=== PATIENT | male | born 1975 | race Caucasian/White ===

== ENCOUNTER 2021-04-09 16:16 | Emergency (ER) | payer BC, SELFPAY ==
[2021-04-09 16:24] VITALS: BP 138/86; PULSE 83; RESP 20; TEMP 37.2; O2SAT 98
--- NOTE | 2021-04-09 16:59 | ED.GENADULT ---
HPI - General Adult General Chief complaint: Unspecified Stated complaint: needs note to return to work Time Seen by Provider: 04/09/21 16:47 Source: patient and RN notes reviewed Mode of arrival: ambulatory Limitations: no limitations History of Present Illness HPI narrative: Patient presents today requesting a note to return to work. He tested positive for COVID-19 on 03/30/2021. He has finished his quarantine today. States his symptoms are all but resolved. He reports a scant cough lingers. He is not currently taking any [id number] medications for his symptoms. MD complaint: Return to work note Related Data Home Medications Medication Instructions Recorded Confirmed No Home Medications 04/09/21 04/09/21 Allergies Allergy/AdvReac Type Severity Reaction Status Date / Time No Known Allergies Allergy Verified 04/09/21 16:35 Review of Systems Review of Systems: CONSTITUTIONAL: Denies body aches, fever, chills, or sweats. EYES: Denies visual changes, redness, or discharge. ENT: Denies rhinorrhea, congestion, sore throat, or otalgia. CARDIOVASCULAR: Denies chest pain, palpitations, or edema. RESPIRATORY: Denies dyspnea.+ Scant cough GASTROINTESTINAL: Denies abdominal pain, nausea, vomiting, or diarrhea. GENITOURINARY: Denies dysuria or hematuria. SKIN: Denies rash, itching, or wounds. MUSCULOSKELETAL: Denies back pain, joint pain, or myalgia. NEUROLOGIC: Denies headache, numbness, tingling, or weakness. PSYCH: Denies depression or anxiety. [facility]LY [facility] Social History Social History (Updated 04/09/21 @ 17:00 by Lou Black, [facility], ) Smoking packs per day: 1 Smoking cigarettes per day: 20.0 Smoking status: Current every day smoker Tobacco type: cigarettes Comments At time of signature, I have reviewed and agree with nursing past medical, surgical, social and family history unless otherwise noted. Please see nursing chart for further information. There is no relevant family history pertinent to the presenting complaint Exam Narrative: GENERAL: Well-appearing, well-nourished, and in no acute distress. HEAD: Normocephalic, atraumatic. EYES: EOMI. No redness or drainage. Conjunctivae normal. ENT: Mucous membranes pink and moist. Nares clear. No rhinorrhea. TMs normal bilaterally. Throat normal. Uvula midline. NECK: Normal AROM. Supple. No lymphadenopathy. CHEST: No respiratory distress. Clear to auscultation. HEART: Regular rate and rhythm. No murmur appreciated. Normal peripheral pulses. EXTREMITIES: Normal range of motion. No edema. SKIN: Warm, dry, no rash. Capillary refill normal. Normal skin turgor. NEURO: No focal deficits. Alert and oriented x3. Gait steady. PSYCH: Normal affect. No signs of depression or anxiety. Course Vital Signs Vital signs: Vital Signs Temperature 99.0 F 04/09/21 16:24 Pulse Rate 83 04/09/21 16:24 Respiratory Rate 20 04/09/21 16:24 Blood Pressure 138/86 04/09/21 16:24 Pulse Oximetry 98 04/09/21 16:24 Temperature 99.0 F 04/09/21 16:24 Pulse Rate 83 04/09/21 16:24 Respiratory Rate 20 04/09/21 16:24 Blood Pressure 138/86 04/09/21 16:24 Pulse Oximetry 98 04/09/21 16:24 Reviewed. Pt has been instructed to follow up with his PCP regarding his elevated blood pressure today. Medical Decision Making Differential Diagnosis Differential Diagnosis: Return to work note Vital Signs Vital Signs: Vital Signs Temperature 99.0 F 04/09/21 16:24 Pulse Rate 83 04/09/21 16:24 Respiratory Rate 20 04/09/21 16:24 Blood Pressure 138/86 04/09/21 16:24 Pulse Oximetry 98 04/09/21 16:24 Temperature 99.0 F 04/09/21 16:24 Pulse Rate 83 04/09/21 16:24 Respiratory Rate 20 04/09/21 16:24 Blood Pressure 138/86 04/09/21 16:24 Pulse Oximetry 98 04/09/21 16:24 Critical Care Time Critical Care Time Critical Care Time: No Discharge Plan Discharge Clinical Impression: Cough Patient Dispositi
== END 2021-04-09 17:10 | disposition home or self-care (01) ==
PROVIDERS: Emergency Provider Nurse Practitioner
DX: R05.9 Cough, unspecified (principal); Z86.16 Personal history of COVID-19
CPT/HCPCS: 99211; G0463

== ENCOUNTER 2021-09-13 13:24 | Emergency (ER) | payer BC, SELFPAY ==
[2021-09-13 13:33] VITALS: BP 176/108; PULSE 88; RESP 16; TEMP 36.6; O2SAT 98
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
== END 2021-09-13 14:04 | disposition short-term general hospital (02) ==
PROVIDERS: Emergency Provider Nurse Practitioner Family
DX: H11.32 Conjunctival hemorrhage, left eye (principal); S05.12XA Contusion of eyeball and orbital tissues, left eye, initial encounter; Y04.0XXA Assault by unarmed brawl or fight, initial encounter; F17.210 Nicotine dependence, cigarettes, uncomplicated
CPT/HCPCS: 99212; G0463

== ENCOUNTER 2021-09-13 14:25 | Emergency (ER) | payer BC, SELFPAY ==
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
[2021-09-13 14:49] VITALS: BP 185/99; PULSE 80; RESP 16; TEMP 36.8; O2SAT 99
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
== END 2021-09-13 17:25 | disposition short-term general hospital (02) ==
PROVIDERS: Emergency Provider Nurse Practitioner Family
DX: S02.40FA Zygomatic fracture, left side, initial encounter for closed fracture (principal); F17.210 Nicotine dependence, cigarettes, uncomplicated; M47.812 Spondylosis without myelopathy or radiculopathy, cervical region; Y04.2XXA Assault by strike against or bumped into by another person, initial encounter
CPT/HCPCS: 70450; 70486; 72125; 99285